=== PATIENT | male | born 1960 | race Caucasian/White ===

== ENCOUNTER → 2022-07-12 09:18 | Outpatient (BNVA) | payer MEDICARE, SELFPAY | PROVIDERS: Family Provider Internal Medicine; PCP Internal Medicine; Visit Provider Internal Medicine | DX: I11.0 Hypertensive heart disease with heart failure (principal); I50.9 Heart failure, unspecified; I42.8 Other cardiomyopathies; I49.3 Ventricular premature depolarization; E88.01 Alpha-1-antitrypsin deficiency | CPT/HCPCS: 99213 ==

== ENCOUNTER → 2023-01-10 09:18 | Outpatient (BNVA) | payer MEDICARE, SELFPAY | PROVIDERS: Family Provider Internal Medicine; PCP Internal Medicine; Visit Provider Internal Medicine | DX: I11.0 Hypertensive heart disease with heart failure (principal); I50.9 Heart failure, unspecified; I42.8 Other cardiomyopathies; I49.3 Ventricular premature depolarization; E88.01 Alpha-1-antitrypsin deficiency | CPT/HCPCS: 99213 ==

== ENCOUNTER → 2023-07-11 08:59 | Outpatient (BNVA) | payer MEDICARE, SELFPAY | PROVIDERS: Family Provider Internal Medicine; PCP Internal Medicine; Visit Provider Internal Medicine | DX: I10 Essential (primary) hypertension (principal); I42.8 Other cardiomyopathies; I49.3 Ventricular premature depolarization; E88.01 Alpha-1-antitrypsin deficiency | CPT/HCPCS: 99213 ==

== ENCOUNTER → 2024-04-13 14:01 | Outpatient (BNVA) | payer MEDICARE, SELFPAY | PROVIDERS: Family Provider Internal Medicine; PCP Internal Medicine; Visit Provider Internal Medicine | DX: I11.0 Hypertensive heart disease with heart failure (principal); I50.9 Heart failure, unspecified; I42.8 Other cardiomyopathies; I49.3 Ventricular premature depolarization; E88.01 Alpha-1-antitrypsin deficiency | CPT/HCPCS: 99214 ==

== ENCOUNTER → 2024-10-20 14:58 | Outpatient (BNVA) | payer MEDICARE, SELFPAY | PROVIDERS: Family Provider Internal Medicine; PCP Internal Medicine; Visit Provider Internal Medicine | DX: I11.0 Hypertensive heart disease with heart failure (principal); I50.9 Heart failure, unspecified; I42.8 Other cardiomyopathies; I49.3 Ventricular premature depolarization; E88.01 Alpha-1-antitrypsin deficiency; F17.220 Nicotine dependence, chewing tobacco, uncomplicated | CPT/HCPCS: 99213 ==

== ENCOUNTER 2025-03-23 19:48 | Emergency (ER) | payer MEDICARE, SELFPAY ==
[2025-03-23 19:55] VITALS: BP 172/83; PULSE 82; RESP 17; TEMP 36.6; O2SAT 96; BMI 31.1
[2025-03-23 20:58] VITALS: BP 163/101; PULSE 85; RESP 16; O2SAT 96
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
[2025-03-23 21:34] VITALS: BP 158/96; PULSE 84; RESP 16; O2SAT 97
[2025-03-23] MEDS: tetanus-dipt-pertussis 0.5 mL SDV IM (21:36)
[2025-03-23] MEDS: BUPivacaine 0.5% INJ 10 mL 2 ML XX (21:37)
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
[2025-03-23] MEDS: ceFAZolin 2,000 mg SDV 2000 MG IVP (22:56)
[2025-03-23 22:57] VITALS: BP 157/97; PULSE 85; RESP 16; O2SAT 97
[2025-03-24 00:13] VITALS: BP 157/97; PULSE 74; RESP 16; O2SAT 95
--- NOTE | 2025-03-24 07:30 | DCPLANNER ---
messaged ortho for er f/u
== END 2025-03-24 00:09 | disposition home or self-care (01) ==
PROVIDERS: Emergency Provider Nurse Practitioner; PCP Family Medicine
DX: S62.661B Nondisplaced fracture of distal phalanx of left index finger, initial encounter for open fracture (principal); X58.XXXA Exposure to other specified factors, initial encounter; F17.220 Nicotine dependence, chewing tobacco, uncomplicated; J44.9 Chronic obstructive pulmonary disease, unspecified; I11.0 Hypertensive heart disease with heart failure; I50.9 Heart failure, unspecified
CPT/HCPCS: 12001; 29130; 73140; 90471; 90715; 96374; 99284; J0690; J3490

== ENCOUNTER → 2025-03-25 09:31 | Outpatient (BNVA) | payer MEDICARE, SELFPAY | PROVIDERS: PCP Family Medicine; Visit Provider Student in an Organized Health Care Education/Training Program | DX: S62.661B Nondisplaced fracture of distal phalanx of left index finger, initial encounter for open fracture (principal); X58.XXXA Exposure to other specified factors, initial encounter | CPT/HCPCS: 73130 ==

== ENCOUNTER 2025-03-25 11:27 | Day surgery (SDC) | payer MEDICARE, SELFPAY ==
[2025-03-25] VITALS (14 sets, daily range): BP systolic 131–198; BP diastolic 75–104; PULSE 70–79; RESP 16–17; TEMP 36.2–36.8; O2SAT 84–98
--- NOTE | 2025-03-25 11:52 | W.PM.OPSUD ---
Surgery/Procedure H&P Update DATE OF PROCEDURE: March 25, 2025 DATE H&P PERFORMED: 03/25/25 H&P UPDATE INFORMATION: I have reviewed H&P completed within last 30 days, I have examined patient prior to procedure and No changes to prior documentation PREOP DIAGNOSIS: Open left middle finger traumatic distal phalanx fracture PRIMARY INDICATION FOR PROCEDURE: Open left middle finger traumatic displaced fracture PLANNED PROCEDURE: Operation Date: 03/25/25 14:25 Proposed Procedures p middle finger irrigation and debridement(Left) - DO bethany Keith POSSIBLE Nail Bed Repair(Left) - DO bethany Keith Nail Plate Removal(Left) - Olivier Fernández DO
[2025-03-25] MEDS: sodium chloride 0.9% 1,000 ML 30 ML IV (12:27)
[2025-03-25] MEDS: lidocaine 1% 10 ML INJ INJECTION (12:58)
[2025-03-25] MEDS: ceFAZolin 2,000 mg SDV 2000 MG IVP (12:59)
[2025-03-25] MEDS: ROPivacaine 0.5% SDV 30 mL 25 MG INJECTION (12:59)
[2025-03-25] MEDS: neomycin-poly-bacitracin oint 28 gm 1 APPLIC TOPICAL (13:20)
--- NOTE | 2025-03-25 13:31 | P.BOP_ITS ---
Date of Procedure: 03/25/2025 Surgeon: Olivier Fernández DO Helmet Hat Brim Cutter(s): None Procedure(s) performed: Left middle finger irrigation and debridement (2.5 cm x 1 cm x 1 cm) Left middle finger nail plate removal and nailbed repair Left middle finger distal phalanx fracture closed treatment indirectly with splint and nailbed repair and soft tissue closure Findings of the procedure(s): Patient was found to have contaminated left middle finger laceration and fracture with nailbed laceration underwent procedure as planned without issues or complications was found to have a longitudinal split in the nailbed this did not communicate to the germinal matrix. Underwent repair of the nailbed which aided in reduction and closure of the fracture site as well as underwent thorough debridement and irrigation. Patient tolerated well without issues or complications this was done under local anesthesia taken back to recovery in stable condition. Estimated blood loss: 1 mL Specimen(s) removed: Nail plate removed but not sent for specimen Post-operative diagnosis: Traumatic left middle finger open distal phalanx fracture with nailbed laceration
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
== END 2025-03-25 13:49 | disposition home or self-care (01) ==
PROVIDERS: PCP Family Medicine; Visit Provider Student in an Organized Health Care Education/Training Program
PROC: (CPT 11760; principal; 2025-03-25 14:15)
PROC: (CPT 11760; 2025-03-25 14:15)
PROC: (CPT 11730; 2025-03-25 14:15)
DX: S62.663B Nondisplaced fracture of distal phalanx of left middle finger, initial encounter for open fracture (principal); I11.0 Hypertensive heart disease with heart failure; I50.9 Heart failure, unspecified; F17.220 Nicotine dependence, chewing tobacco, uncomplicated; J44.9 Chronic obstructive pulmonary disease, unspecified; W33.02XA Accidental discharge of hunting rifle, initial encounter; Z79.899 Other long term (current) drug therapy
CPT/HCPCS: 11760; 11044; 99204; J0690; J1100; J2704; J2795; J3010; J7030; J9999

== ENCOUNTER 2025-03-30 11:10 | Outpatient (CLI) | payer MEDICARE, SELFPAY | END 2025-03-30 11:11 | disposition home or self-care (01) | LOC: SOT 11:10 | PROVIDERS: Visit Provider Student in an Organized Health Care Education/Training Program | DX: Z46.89 Encounter for fitting and adjustment of other specified devices (principal); S62.603D Fracture of unspecified phalanx of left middle finger, subsequent encounter for fracture with routine healing; W34.09XD Accidental discharge from other specified firearms, subsequent encounter | CPT/HCPCS: 97760; L3935 ==

== ENCOUNTER → 2025-04-06 07:47 | Outpatient (BNVA) | payer MEDICARE, SELFPAY | PROVIDERS: PCP Family Medicine; Visit Provider Physician Assistant | DX: S62.603B Fracture of unspecified phalanx of left middle finger, initial encounter for open fracture (principal); Z98.890 Other specified postprocedural states; X58.XXXA Exposure to other specified factors, initial encounter | CPT/HCPCS: 99024 ==

== ENCOUNTER → 2025-05-04 08:29 | Outpatient (BNVA) | payer MEDICARE, SELFPAY | PROVIDERS: PCP Family Medicine; Visit Provider Physician Assistant | DX: Z98.890 Other specified postprocedural states (principal); S62.603D Fracture of unspecified phalanx of left middle finger, subsequent encounter for fracture with routine healing; W34.09XD Accidental discharge from other specified firearms, subsequent encounter | CPT/HCPCS: 99024 ==

== ENCOUNTER → 2025-06-01 08:48 | Outpatient (BNVA) | payer MEDICARE, SELFPAY | PROVIDERS: PCP Electrodiagnostic Medicine; Visit Provider Physician Assistant | DX: S62.603B Fracture of unspecified phalanx of left middle finger, initial encounter for open fracture (principal); Z98.890 Other specified postprocedural states; W34.09XA Accidental discharge from other specified firearms, initial encounter | CPT/HCPCS: 99024 ==

== ENCOUNTER → 2025-07-19 13:40 | Outpatient (BNVA) | payer MEDICARE, SELFPAY | PROVIDERS: PCP Electrodiagnostic Medicine; Visit Provider Internal Medicine | DX: I11.0 Hypertensive heart disease with heart failure (principal); I50.9 Heart failure, unspecified; I42.8 Other cardiomyopathies; I49.3 Ventricular premature depolarization; E88.01 Alpha-1-antitrypsin deficiency; F17.220 Nicotine dependence, chewing tobacco, uncomplicated | CPT/HCPCS: 99213 ==

== ENCOUNTER → 2025-07-27 09:27 | Outpatient (BNVA) | payer MEDICARE, SELFPAY | PROVIDERS: PCP Electrodiagnostic Medicine; Visit Provider Physician Assistant | DX: Z98.890 Other specified postprocedural states (principal) | CPT/HCPCS: 99213 ==